=== PATIENT | female | born 1975 | race American Indian/Alaskan Native ===

== ENCOUNTER 2021-08-28 12:30 | Emergency (ER) | payer BC ==
[2021-08-28] MEDS ORDERED: SODIUM CHLORIDE 0.9% 1000 ML 1,000 ML IV ONE (13:31)
[2021-08-28] MEDS ORDERED: ONDANSETRON 4 MG/2 ML INJ IV ONE (13:31)
--- NOTE | 2021-08-28 14:09 | Emergency Department Report ---
ED Abdominal Pain HPI - General Chief Complaint: Abdominal Pain Stated Complaint: VOMITING Time Seen by Provider: 08/28/21 13:00 Source: patient Mode of arrival: Ambulatory Limitations: No Limitations - History of Present Illness Initial Comments: 46-year-old -[place] female presents to the emergency room planing of epigastric pain that woke her up this morning about 1 AM. Patient complains of nausea and vomiting. She denies any diarrhea. She states she has not been able to hold any food down. She does admit that she drinks alcohol mostly margaritas. She denies any marijuana or cigarette use. Patient states she is not vaccinated for Covid and has not been Covid tested. She reports that her pain is 8 out of 10 she has no known drug allergies. States that the pain does not radiate anywhere. MD Complaint: abdominal pain -: This morning Time: 01:00 Location: epigastric Radiation: none Migration to: no migration Severity scale (0 -10): 9 Quality: stabbing, sharp Improves With: nothing Worsens With: nothing Associated Symptoms: nausea, vomiting. denies: diarrhea, fever, hematemesis, hematochezia - Related Data Previous Rx's Medication Instructions Recorded Last Taken Type Ondansetron [Zofran Odt] 4 mg PO Q8HR PRN #12 tab.rapdis 08/28/21 Unknown Rx Allergies Allergy/AdvReac Type Severity Reaction Status Date / Time No Known Allergies Allergy Unverified 08/28/21 12:38 ED Review of Systems ROS: Stated complaint: VOMITING Other details as noted in HPI Comment: All other systems reviewed and negative ED Past Medical Hx - Past Medical History Previous Medical History?: Yes Additional medical history: FIBROIDS - Surgical History Additional Surgical History: HYST - Medications Home Medications: Home Medications Medication Instructions Recorded Confirmed Last Taken Type Ondansetron [Zofran Odt] 4 mg PO Q8HR PRN #12 tab.rapdis 08/28/21 Unknown Rx ED Physical Exam - General Limitations: No Limitations General appearance: alert, in no apparent distress - Head Head exam: Present: atraumatic, normocephalic - Eye Eye exam: Present: normal appearance - ENT ENT exam: Present: mucous membranes moist - Neck Neck exam: Present: normal inspection - Respiratory Respiratory exam: Present: normal lung sounds bilaterally. Absent: respiratory distress - Cardiovascular Cardiovascular Exam: Present: regular rate, normal rhythm. Absent: systolic murmur, diastolic murmur, rubs, gallop - GI/Abdominal GI/Abdominal exam: Present: soft, tenderness (Epigastric), normal bowel sounds. Absent: distended - Extremities Exam Extremities exam: Present: normal inspection - Back Exam Back exam: Present: normal inspection - Neurological Exam Neurological exam: Present: alert, oriented X3 - Psychiatric Psychiatric exam: Present: normal affect, normal mood - Skin Skin exam: Present: warm, dry, intact, normal color. Absent: rash ED Course Vital Signs 08/28/21 12:41 Temperature 98.4 F Pulse Rate 85 Respiratory 18 Rate Blood Pressure 158/92 [Right] O2 Sat by Pulse 100 Oximetry - Reevaluation(s) Reevaluation #1: 08/28/21 16:35 Patient reports she feels much better. She has no abdominal pain still has some mild nausea. ED Medical Decision Making - Lab Data Result diagrams: 08/28/21 13:18 08/28/21 13:18 - Medical Decision Making 46-year-old -[place] female presents to the emergency room planing of epigastric pain that woke her up this morning about 1 AM. Patient complains of nausea and vomiting. She denies any diarrhea. She states she has not been able to hold any food down. She does admit that she drinks alcohol mostly margaritas. She denies any marijuana or cigarette use. Patient states she is not vaccinated for Covid and has not been Covid tested. She reports that her pain is 8 out of 10 she has no known drug allergies. States that the pain does not radiate anywhere. Critical care attestation.: If time is entered above; I have spent that time in minutes in the direct care of this critically ill patient, excluding procedure time. ED Disposition Clinical Impression: Epigastric pain Nausea and vomiting Qualifiers: Vomiting type: unspecified Qualified Code(s): R11.2 - Nausea with vomiting, unspecified Disposition: 01 HOME / SELF CARE / HOMELESS Is pt being admited?: No Does the pt Need Aspirin: No Condition: Stable Instructions: Abdominal Pain (ED), Nausea and Vomiting, Adult, [id number] Additional Instructions: Labs are stable no elevation in the lipase which usually can indicate that you have pancreatitis. Most likely have a virus which caused you to have nausea and vomiting. Like for you to take the Zofran as needed for the nausea vomiting increase your fluids and advance your diet as tolerated. Is very important you follow-up with your primary care provider if your symptoms persist. Prescriptions: Ondansetron [Zofran Odt] 4 mg PO Q8HR PRN #12 tab.rapdis PRN Reason: Nausea And Vomiting Referrals: [facility] [Provider Group] - 3-5 Days Forms: Work/School Release Form(ED) Time of Disposition: 16:38
[2021-08-28 14:33] LABS: Alanine Aminotransferase 17 units/L (7-56); Blood Urea Nitrogen 10 mg/dL (7-17); Calcium 9.5 mg/dL (8.4-10.2); Hemolysis Index 17
[2021-08-28 14:34] LABS: BUN/Creatinine Ratio 17
[2021-08-28 14:48] LABS: Hematocrit 36.4 % (30.3-42.9); Hemoglobin 11.6 gm/dl (10.1-14.3); Mean Corpuscular HGB Conc 32 % (30-34); Mean Corpuscular Volume 80 fl (79-97); Red Blood Count 4.55 M/mm3 (3.65-5.03); Red Cell Distribution Width 13.8 % (13.2-15.2)
[2021-08-28] MEDS ORDERED: METOCLOPRAMIDE 10 MG/2 ML INJ IV ONE (16:35)
[2021-08-28 16:52] LABS: Total Cells Counted 100
[2021-08-28 16:53] LABS: Band Neutrophils # (Manual) 0.1 K/mm3; Giant Platelets Rare; Platelet Estimate Consistent w Auto; Target Cells 1+
[2021-08-28 17:09] LABS: Platelet Count 177 K/mm3 (140-440)
[2021-08-28 17:19] VITALS: BP 138/76
== END 2021-08-28 17:19 | disposition home or self-care (01) ==
LOC: ED 12:30
DX: R10.13 Epigastric pain (principal); R11.2 Nausea with vomiting, unspecified
CPT/HCPCS: 36415; 80053; 83690; 85007; 85025; 96361; 96374; 96375; 99283; J2405; J2765; J7030; 80320; Q0162; G0480